=== PATIENT | female | born 1955 | race Hispanic/Latino ===

== ENCOUNTER 2022-07-16 08:09 | Day surgery (SDC) | payer BC, OTHER ==
[2022-07-16 08:18] LABS: Absolute Lymphocytes (CBC) 1.7 K/uL (0.7-4.9); Hematocrit 39.1 % (36.0-45.0); Lymphocytes % 33.9 % (15.3-44.8); MCV 90.1 fL (80-100); MPV 6.3 fL (7.6-11.3); RBC Red Blood Cell Count 4.34 M/uL (3.86-4.86)
[2022-07-16 08:31] LABS: Potassium 4.2 mmol/L (3.5-5.1)
[2022-07-16] MEDS ORDERED: Ringers Lactate 1,000 ML IV ONE ×2 (08:43→10:53)
[2022-07-16] MEDS ORDERED: LIDOCAINE 2% MPF 5 ML VIAL ONE (09:19)
[2022-07-16] MEDS ORDERED: ROCURONIUM 50 MG/5 ML VIAL IV ONE (09:19)
[2022-07-16] MEDS ORDERED: FENTANYL CITR 100 MCG/2 ML ONE (09:19)
[2022-07-16] MEDS ORDERED: MIDAZOLAM HCL 2 MG/2 ML INJ ONE (09:19)
[2022-07-16] MEDS ORDERED: propofoL 200 MG/20 ML VIAL IV ONE (09:19)
--- NOTE | 2022-07-16 09:19 | P.HP ---
Date of Service: 07/16/22 PC: This 66-year-old female presents for elective laparoscopic cholecystectomy with intraoperative cholangiogram. HPC: Patient has been experiencing right upper quadrant abdominal pain off and on over the last year. Describes the pain as being in the right upper quadrant. Radiates into her back. On work-up has been found to have cholecystitis with cholelithiasis. PSHx: NAD PMHx: Negative Social Hx: Denies any allergies Sys R: No cough, wheeze, shortness of breath. No chest pain or palpitations. Denies any urinary complaints O/E: Awake alert vital signs are stable very relaxed this morning HEENT: Nonicteric Chest: Chest movement equal bilaterally Abd: Mild right upper quadrant discomfort Benson: Intact Data: Has documented cholecystitis with cholelithiasis Impression: Chronic cholecystitis with cholelithiasis, biliary colic Plan: I will taken the operating room for laparoscopic possible open cholecystectomy with a cholangiogram. The risks of this procedure have been discussed. The possibility of bleeding, infection, injury to bile ducts blood vessels and intestines has been described. The possible need for an open and or further surgeries and procedures was discussed. She understands and wants us to proceed.
[2022-07-16] MEDS ORDERED: CELECOXIB 100 MG CAPSULE ONE (09:20)
[2022-07-16] MEDS ORDERED: ONDANSETRON 4 MG/2 ML VIAL ONE (09:20)
[2022-07-16] MEDS ORDERED: ACETAMINOPHEN 500 MG TAB ONE (09:21)
[2022-07-16] MEDS: CEFOXITIN SODIUM 1 GM/VIAL ONE ×2 (09:22→09:36)
[2022-07-16] MEDS ORDERED: dexAMETHasone 4 MG/ML VIAL ONE (09:52)
[2022-07-16] MEDS ORDERED: Phenylephrine HCl 10 MG/ML 1 ML VIAL ONE (09:56)
[2022-07-16 10:04] LABS: SARS-CoV-2 Antigen Rapid Res Negative (Negative)
[2022-07-16] MEDS ORDERED: NEOSTIGMINE 1 MG/ML -5 ML ONE (10:46)
[2022-07-16] MEDS ORDERED: GLYCOPYRROLATE 0.2 MG/ML SYR ONE (10:46)
[2022-07-16] MEDS ORDERED: KETOROLAC 30 MG/ML INJ ONE (10:50)
--- NOTE | 2022-07-16 10:57 | P.OP ---
Preoperative diagnosis: Acute on chronic cholecystitis with cholelithiasis Postoperative diagnosis: The same with cirrhosis of the liver Primary procedure: Laparoscopic cholecystectomy Secondary procedure: Cholangiogram Other procedure(s): Devante-Cut liver biopsy right lobe of liver Anesthesia: General Estimated blood loss: Less than 20 cc Specimen: 1 gallbladder and contents, liver biopsy right lobe Operative Technique: The patient brought the operating room and placed supine on the table. After the induction of adequate general endotracheal anesthesia, there the abdomen was prepped with a DuraPrep solution, she was draped in usual aseptic manner. A subumbilical incision was made. This was brought down through the skin and subcutaneous tissue. The Visiport was now used to enter the peritoneal cavity across the pneumoperitoneum to approximately 12 mmHg. Under direct vision a 5 mm trocar was placed in the upper midline, and 2 other 5 mm trochars on the right lateral side of the abdomen. The patient was now placed in reverse Trendelenburg. The table was rolled to the left side. We could visualize the peritoneal contents. The liver itself showed signs of cirrhosis. This was both in the right and the left liver lobes. On looking around the peritoneal cavity we again can see that the omentum showed neovascularization along the right edge of the peritoneal cavity. Attention was turned towards the gallbladder itself. It was noted to be chronically inflamed. A grasper was placed on the fundus of the gallbladder. The gallbladder was elevated. Another was placed on Ryan's pouch. Applying lateral traction we were able to visualize the area of the cystic duct. This was gently cleaned out. We saw again there was some early n eovascularization of scar tissue in this area. A clip was placed between the gallbladder and the cystic duct. An opening was made into the cystic duct through which we obtained a cholangiogram. It was interesting to note that when we did open the cystic duct there was a considerable amount of black nathan stone inside the duct. This was able to be cleared. The duct itself also showed a considerable length and twisted his tube before his came into the common bile duct. The cystic artery was identified and clipped and divided in the usual manner. The gallbladder was dissected free from the liver bed. Attention was turned back towards the liver bed itself. Electrocautery was used to control small bleeding that was visualized. Attention was turned towards the right lobe of the liver. Using a Devante-Cut needle we were able to obtain a liver biopsy. Having ensure we had a specimen, attention was turned back to the peritoneal cavity. Once again the area was irrigated. The irrigating solution was aspirated from the peritoneal cavity. The patient was returned to the neutral position on the OR table. A tap block was done with 0.25% Marcaine. The fascial defect at the umbilicus is now approximated with the Endo Close and an absorbable suture. At this point the pneumoperitoneum was collapsed, the trochars removed, and the suture tied. Gucci were then applied to the skin. At the end of the procedure the patient was in a stable condition was sent to the recovery room. Needle sponge instrument count were correct. No drains were placed. Complications: None Transferred to: Recovery Room Condition: Good
[2022-07-16] MEDS ORDERED: ONDANSETRON 4 MG/2 ML VIAL IV PRN (11:13)
[2022-07-16] MEDS: Ringers Lactate 1,000 ML IV SCH ×2 (11:13→20:56)
[2022-07-16] MEDS ORDERED: MEPERIDINE HCL 25 MG/ML SYR ONE (11:36)
[2022-07-16 11:45] VITALS: O2SAT 99
[2022-07-16 11:57] LABS: Albumin 3.2 g/dL (3.4-5.0); Bilirubin Direct 0.3 mg/dL (0-0.2); Bilirubin Total 0.7 mg/dL (0.2-1.0); Protein, Total 7.2 g/dL (6.4-8.2)
[2022-07-16 12:23] VITALS: BMI 21.9
--- NOTE | 2022-07-16 13:00 | RAD REPORT ---
EXAM DESCRIPTION: RAD - Cholangiogram Oper-Xray Or - 07/16/2022 12:40 pm CLINICAL HISTORY: LAP JO W/IOC COMPARISON: ABDOMINAL EXAM COMPLETE dated 12/17/2003 FINDINGS/IMPRESSION: Two still images and one cine sequence submitted showoing an intraoperative cho langiogram. No stones identified within the cystic duct or common bile duct. Contrast enters the duod enum. Cumulative dose: 3.31 mGy Fluoro time: 0.2 minutes
[2022-07-16] MEDS ORDERED: PNEUMOCOCCAL VACCINE 0.5 ML IMVAC ONE (14:00)
[2022-07-17] MEDS: MORPHINE 4 MG/ML SYR IV PRN ×2 (00:08→08:43)
[2022-07-17] MEDS: Ringers Lactate 1,000 ML IV SCH (06:45)
[2022-07-17 07:20] LABS: Absolute Lymphocytes (CBC) 1.5 K/uL (0.7-4.9); Hematocrit 37.2 % (36.0-45.0); MCV 90.6 fL (80-100); MPV 6.4 fL (7.6-11.3); RBC Red Blood Cell Count 4.11 M/uL (3.86-4.86)
[2022-07-17 07:37] LABS: Potassium 4.1 mmol/L (3.5-5.1)
[2022-07-17] MEDS: HYDROCODONE/APAP 7.5/325 MG TAB PO PRN ×2 (08:37→14:32)
[2022-07-17 12:38] VITALS: BP 86/43; TEMP 97.3
--- NOTE | 2022-07-17 13:58 | P.DS ---
Discharge Date: 07/17/22 Disposition: ROUTINE DISCHARGE Discharge Condition: GOOD Reason for Admission: Acute postoperative abdominal pain Procedures: Laparoscopic cholecystectomy with cholangiogram Brief History of Present Illness: Patient presented for elective laparoscopic cholecystectomy with cholangiogram. Hospital Course: This patient presented for her elective procedure. She underwent it and wanda erated it well. At the time of operation we also found she had what appeared to be macular cirrhosis. A liver biopsy was taken. Postoperatively she did well she was admitted for observation and pain control. Today she is up ambulating, tolerating a diet, and her pain is well controlled on oral medications. She is deemed fit for discharge. 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 Vital Signs/Physical Exam: Temp Pulse Resp BP Pulse Ox 97.3 F 81 18 86/43 L 94 07/17/22 12:00 07/17/22 12:00 07/17/22 12:00 07/17/22 12:00 07/17/22 12:00 Laboratory Data at Discharge: WBC 7.40 K/uL (4.3-10.9) 07/17/22 07:04 Hgb 12.7 g/dL (12.0-15.0) 07/17/22 07:04 Hct 37.2 % (36.0-45.0) 07/17/22 07:04 Plt Count 144 K/uL (152-406) L 07/17/22 07:04 Sodium 138 mmol/L (136-145) 07/17/22 07:04 Potassium 4.1 mmol/L (3.5-5.1) 07/17/22 07:04 BUN 17 mg/dL (7-18) 07/17/22 07:04 Creatinine 1.03 mg/dL (0.55-1.3) 07/17/22 07:04 Glucose 257 mg/dL (74-106) H 07/17/22 07:04 Total Bilirubin 0.7 mg/dL (0.2-1.0) 07/16/22 11:32 AST 51 U/L (15-37) H 07/16/22 11:32 ALT 37 U/L (12-78) 07/16/22 11:32 Alkaline Phosphatase 124 U/L (45-117) H 07/16/22 11:32 Home Medications: Aspirin [Low Dose Aspirin EC] 81 mg PO DAILY 07/16/22 Lisinopril [Zestril] 10 mg PO DAILY 07/16/22 Lovastatin 10 mg PO BEDTIME 07/16/22 Mirtazapine [Remeron] 30 mg PO BEDTIME 07/16/22 Montelukast [Singulair] 10 mg PO DAILYPRN PRN 07/16/22 Diet: Regular Activity: Continue incentive spirometer
--- NOTE | 2022-07-17 16:00 | EKG ---
Test Date: 2022-07-16 Test Time: 07:57:57 Anesthetist: JUAN ALBERTO MEASUREMENT RESULTS: Intervals: Rate: 87 GA: 146 QRSD: 72 QT: 368 QTc: 442 [place]: P: 43 GA: 146 QRS: 19 T: 18 INTERPRETIVE STATEMENTS: Normal sinus rhythm Possible Left atrial enlargement Borderline ECG No previous ECG available for comparison Electronically Signed On 07-17-22 15:58:14 [employer] by Alexys Swan
== END 2022-07-17 14:40 | disposition home or self-care (01) ==
LOC: OR 08:09 → 4TH 11:20 → OR 07-17 14:40
PROVIDERS: ATTEND Surgery
PROC: BF532Z0 Other Imaging of Gallbladder and Bile Ducts using Fluorescing Agent, Intraoperative (ICD-10-PCS; 2022-07-16)
PROC: 0FB14ZX Excision of Right Lobe Liver, Percutaneous Endoscopic Approach, Diagnostic (ICD-10-PCS; 2022-07-16)
PROC: 0FT44ZZ Resection of Gallbladder, Percutaneous Endoscopic Approach (ICD-10-PCS; principal; 2022-07-16 09:30)
DX: K80.10 Calculus of gallbladder with chronic cholecystitis without obstruction (principal); K80.00 Calculus of gallbladder with acute cholecystitis without obstruction; K74.60 Unspecified cirrhosis of liver; Z20.822 Contact with and (suspected) exposure to COVID-19
CPT/HCPCS: 93005; 85025 ×2; 80048 ×2; 36415 ×2; 88313; 80076; 88304; 88307; 74300; 94010; 87811; 47563; 47379; J2704; J1100; J2370; J2001; J2250; J3010; J2175; J2710; J7120 ×4; J0694; J2405